=== PATIENT | male | born 1960 | race Caucasian/White ===

== ENCOUNTER 2024-08-13 21:53 | Inpatient (IN) | payer OTHER, SELFPAY ==
[2024-08-13] VITALS (33 sets, daily range): BP systolic 73–144; BP diastolic 51–121; BMI 25.1
[2024-08-13] MEDS: ZOFRAN 4 MG IV (19:21)
[2024-08-13] MEDS: SUBLIMAZE 100 MCG IV (19:21)
--- NOTE | 2024-08-13 19:26 | ED.GENMED ---
History of Present Illness
General
Chief Complaint: Chest Pain
Source: patient
Exam Limitations: none
Time Seen by Provider: 08/13/24 19:15
Nursing documentation reviewed up to this point in time: agreed with
History of Present Illness
History of Present Illness:
Patient's status post pacemaker placement in 2023 secondary to bradycardia associated with AV block, along with substance abuse, presents to ED from [facility] secondary to sudden onset of chest pain radiating to the back, an
approximately 2 hours prior to arrival. Denies nausea or vomiting. Chest pain described as sharp, with radiation to the back, without any alleviating or exacerbating factors. Denies previous history of similar symptoms. Denies shortness of
breath. Denies trauma. Denies recent illness. Denies recent change in medications or diet. Denies recent travel. Denies recent surgery. Denies leg pain or swelling.
Review of Systems
Review of Systems
Allergies reviewed?: Yes
All Other Systems: ROS reviewed and negative except as documented in HPI and ROS
Constitutional: Reports no symptoms; Denies fever
Respiratory: Reports no symptoms; Denies trouble breathing
Cardiac: Reports chest pain and diaphoresis; Denies palpitations
ABD/GI: Reports no symptoms; Denies nausea or vomiting
Musculoskeletal: Reports no symptoms; Denies neck pain or back pain
Skin: Reports no symptoms
Neurological: Reports no symptoms; Denies dizzy or headache
Phy Exam
Physical Exam
Physical Exam:
Physical Exam
General: moderate painful distress, not acutely ill. afebrile
Head: nc/at. eomi
Neck: supple. no meningeal signs. no jvd
Heart: s1/s2 regular rate and rhythm
Lungs: no acute respiratory distress. clear bilaterally. chest wall nontender to palpation
Abdomen: normal bowel sounds. not tender.
Neuro: alert and oriented x 3. no focal neurological deficits
Skin: no rash
Psychiatric: well kept. interactive and cooperative
Extremities: no edema. no calf tenderness.
Scores
Heart Score for Chest Pain Patients
STEMI patient?: Yes
Course
Orders/Labs/Results
Orders:
Orders
08/13/24 Breakfast
Cholesterol Lowering
At Your Request: Full Participation
Cholesterol Lowering: Sodium, 2 Gram
08/13/24 19:10
Electrocardiogram (*1) Urgent
Reason for Study: Chest Pain
Cardiac Monitoring- Treatment ONCE
EKG- Treatment ONCE
IV Insert/Care/Rem.- Treatment PRN
O2 Therapy [RESP] Urgent
Titrate/Wean O2 to maintain O2 sat greater than (%): 90
Special Instructions: Maintain sats >/=90%
Pulse Ox/spot Check [RESP] Urgent
Quantity: 1
Special Instructions: ON ROOM AIR
08/13/24 19:13
Ondansetron Injectable [Zofran] 4 mg .ROUTE .STK-MED ONE
08/13/24 19:14
Fentanyl Citrate/Pf [Sublimaze] 100 mcg .ROUTE .STK-MED ONE
08/13/24 19:15
CT Chest/abd/pel Wo Iv Cont Urgent
Reason For Exam: CP radiating to back
08/13/24 19:19
0.9% Sodium Chloride 500 ml [Nss] 500 ml IV BOLUS
Fentanyl Citrate/Pf [Sublimaze] 100 mcg IV NOW STA
Ondansetron Injectable [Zofran] 4 mg IV NOW STA
08/13/24 19:45
Amiodarone [Cordarone] 900 mg DEXTROSE 5% PVC-free BAG [D5W PVC-free BAG] 500 ml IV PER PROTOCOL
08/13/24 19:57
Ticagrelor [Brilinta] 90 mg .ROUTE .STK-MED ONE
08/13/24 20:13
Fentanyl Citrate/Pf [Sublimaze] 100 mcg .ROUTE .STK-MED ONE
Heparin 10,000 units .ROUTE .STK-MED ONE
Midazolam HCl [Versed] 2 mg .ROUTE .STK-MED ONE
Verapamil Injectable [Isoptin/Verapamil Injection] 5 mg .ROUTE .STK-MED ONE
08/13/24 20:14
Heparin 1000 Units/500 ml [Heparin] 1,000 units in 500 ml .ROUTE .STK-MED
Heparin Sodium,Porcine/Ns/Pf [Heparin 2000 Units/1000 ml] 2,000 unit in 1,000 ml .ROUTE .STK-MED
Lidocaine HCl/Pf [Xylocaine-Mpf 1% Vial] 100 mg .ROUTE .STK-MED ONE
Nitroglycerin [Tridil] 1,500 mcg .ROUTE .STK-MED ONE
08/13/24 20:15
DOPamine 400 MG/D5W 250 ML [DOPamine 400 MG] 400 mg in 250 ml IV PER PROTOCOL
Initial dose in mcg/kg/min, then titrate:: 10
Titrate to keep:: SBP > 90 mmHg
Titrate by mcg/kg/min:: 1-2 mcg/kg/min
Frequency of titrations (minutes):: 15
Maximum dose in ICU in mcg/kg/min:: 20
Maximum dose in IMU in mcg/kg/min:: 10
Begin to taper infusion when:: Remained at goal for 4hrs
Taper by mcg/kg/min:: 1-2 mcg/kg/min
Frequency of taper (minutes) if patient maintains goal:: 30
Taper to off?: Yes
If infusion off & no longer maintaining goal:: Contact Provider
08/13/24 20:23
Complete Blood Count/With Diff Urgent
Comprehensive Metabolic Panel Urgent
Lipase Urgent
Troponin I Urgent
08/13/24 20:26
PT/INR [Prothrombin Time] Urgent
08/13/24 20:46
NORepinephrine 4 MG/250 ML [Levophed] 4 mg in 250 ml .ROUTE .STK-MED
08/13/24 21:15
Arterial Blood Gas Stat
Lactic Acid Stat
08/13/24 21:18
Furosemide [Lasix] 20 mg .ROUTE .STK-MED ONE
08/13/24 21:42
Admit Patient As Directed
Co-Sign Provider:
Level of Care: Inpatient admission
Assign to:: CVICU
Physician / Group: CBC
Diagnosis: STEMI
Reason for Hospitalization: STEMI
Expected length of stay greater than two midnights?: Yes
ELOS- Estimated Length of Stay in days: 3
I certify the patient meets the requirements for IP care: Yes
Electrocardiogram (*1) Urgent
Reason for Study: Other
Other Reason for Exam: s/p intervention
Code Status As Directed
Resuscitation Status: Full Code
CARDIAC REHAB CONSULT Routine
Co-Sign Provider:
Cardiac Rehab & Exercise Evaluation Referral
Type of Cardiac Rehab Referral: Outpatient
Diagnosis: STEMI
Date of Diagnosis/Surgery: 08/13/2024
Referring Provider: Jarrett Fontanez
[facility] Intensive Cardiac Rehab Exercise Prescription
The above named person is capable of participating in an intensive cardiac rehab exercise therapy program
under the guidance of the [facility] cardiac rehab staff, outpatient registered dieticians and
supervision of a physician.
ICR Program Objectives:
Provide supervised exercise, cooking classes, nutritional counseling and healthy mind-set education to
improve the function/symptom free work capacity to an optimal level as well as control risk factors to
prevent the progression of heart disease. During the supervised exercise therapy session some or all of
the following may be included in the cardiac rehab session: ECG telemetry, BP, heart rate, rate of
perceived exertion, symptoms/tolerance, cholesterol testing and education. Exercise modalities may
include: treadmill, upright or recumbent bike, spin bike, rowing machine, elliptical, recumbent
elliptical, arm-bike machine, recumbent stepper and free weights.
Intensity:
All CR staff will use ACSM guidelines: Most patients will exercise in the following range: Heart Rate
Dante range of 40% to 80% & Oxygen Uptake reserve range 40-80% (VO2R). Peak heart rate and VO2 are
derived from the cardiac rehab submaximal graded exercise test at RPE of 13/14 out of 20. Initial
intensity range: RPE 11 to 14/20 and may expand to 11 to 16/20.
Duration & Frequency:
If appropriate the patient will be progressed up to 40 minutes of exercise therapy. Patients will be
instructed to come three times a week in cardiac rehab and at a home/other gym to achieve optimal
physical activity/exercies i.e. 4000-10,000 steps per day.
Education:
The patient will receive one-on-one education during their orientation, initial exercise evaluation, ITP
reassessments and discharge session. Each exercise session will also include an education class (30-40
minutes).
Acetaminophen [Tylenol] 650 mg PO Q4HPRN PRN
Activity As Directed
Activity Level: Out of Bed- Chair
Comment: bed/chair rest for 2 hours then out of bed ad sarahi
Claim Review Medical Director Procedure As Directed
Cardiac Cath Procedure: percutaneous coronary intervention
Intake/ Output As Directed
Frequency: Per unit guidelines
Notify MD As Directed
Notify physician if: immediately for chest pain or bleeding from access site(s)
Radial Artery Hemostasis Method As Directed
Instructions:: 3 mL out at 2 hour posts placement of band
3 mL out at 2 1/2 hours post placement of band
3 mL out at 3 hours post placement of band
Off at 3 1/2 hours post placement of band
If any oozing or hemotoma occurs:: re-inflate band and call provider
Site Checks As Directed
Check access site for bleeding/hematoma: Yes
Comment: on arrival, Q15min x4, Q30min x2, Q1 hr x2, Q2 hr x2, Q4 hr or per
protocol
Vascular Checks As Directed
Location: distal to access site - pulse check
Frequency: Other
Comment: on arrival, Q15min x4, Q30min x2, Q1 hr x2, Q2 hr x2, Q4 hr or per protocol
Vital Signs As Directed
Frequency: Other
Additional Instructions:: on arrival, Q15min x4, Q30min x2, Q1 hr x2, Q2 hr x2, then Q4 hr or per unit
protocol
08/13/24 21:43
PRN Pain Medication Management As Directed
May give lesser potent ordered pain med per pt: Yes
preference::
Protocol:: Medication orders for pain may be administered in a
manner that supports deferring to patient preference
when the pt is:
- Requesting an ordered lesser potent pain medication.
Least to most potent pain medications are defined
as: acetaminophen < NSAID < tramadol < opioids
(morphine, oxycodone, hydromorphone).
- Requesting a lesser dose of the same medication IF
ORDERED.
- Requesting a less intrusive route of administration
if both routes are prescribed by the provider (PO <
IV).
DX Deep Vein Thrombosis Video Routine
08/13/24 21:45
Atorvastatin [Lipitor] 80 mg PO QPM
08/13/24 22:30
Glycohemoglobin (HgbA1c) Routine
08/14/24 00:00
Heparin 5,000 units SC Q8
08/14/24 06:00
Echo 2D MMode Color/Doppler IN AM
Reason for Study: STEMI
Electrocardiogram (*1) IN AM
Reason for Study: Other
Other Reason for Exam: s/p intervention
Basic Metabolic Panel IN AM
Cardiovascular Evaluation IN AM
Complete Blood Count/With Diff IN AM
08/14/24 08:00
Aspirin Chewable [Low Strength Aspirin] 81 mg PO DAILY
Ticagrelor [Brilinta] 90 mg PO BID
Abnormal Lab Results
06/02/2508/13/24 08/13/24
20:23 20:32 20:54
WBC 13.6 H 10^3/uL
(4.8-10.8)
RBC 4.46 L 10^6/uL
(4.70-6.10)
MPV 10.8 H fL
(7.4-10.4)
Abs Immat Gran (auto) 0.1 H 10^3/uL
(0-0.05)
Absolute Neuts (auto) 8.5 H 10^3/uL
(1.4-6.5)
Absolute Lymphs (auto) 3.7 H 10^3/uL
(1.2-3.4)
Absolute Monos (auto) 1.1 H 10^3/uL
(0.1-0.6)
pH
HCO3
Glucose 112 H mg/dl
(70-99)
POC ACT Low Range 160 H Seconds 242 H Seconds
(116-155) (116-155)
08/13/24 08/13/24 08/13/24
21:12 21:15 21:25
WBC
RBC
MPV
Abs Immat Gran (auto)
Absolute Neuts (auto)
Absolute Lymphs (auto)
Absolute Monos (auto)
pH 7.32 L
(7.35-7.45)
HCO3 20.1 L mmol/L
(21-28)
Glucose
POC ACT Low Range 294 H Seconds 274 H Seconds
(116-155) (116-155)
08/13/24 20:23
08/13/24 20:23
Vital Signs
Initial and Last Documented VS:
Initial Vital Signs
Temp Pulse Resp Pulse Ox
98.6 F 77 22 100
08/13/24 19:11 08/13/24 19:11 08/13/24 19:11 08/13/24 19:11
Last Documented Vital Signs
Temp Pulse Resp BP Pulse Ox
98.5 F 50 14 97/69 99
08/13/24 23:47 08/14/24 01:05 08/14/24 01:05 08/14/24 01:01 08/14/24 01:05
MDM/Problems Addressed
MDM/Problems Addressed:
Patient evaluated immediately upon arrival secondary to ongoing chest pain with prehospital EKG concerning for potential ST elevation. EKG obtained upon arrival in ED reveals paced rhythm. However given patient's presentation, there is significant
clinical concern for potential aortic dissection. As such, stat CT angiogram of chest abdomen pelvis ordered, after providing patient with fentanyl along with Zofran. Blood pressure also checked in both arms, with slight differential noted on
systolic blood pressure.
After receiving initial CT chest without contrast, clinical laboratory aides teacher study, patient noted to become less responsive and noted to be in ventricular fibrillation rhythm on the monitor. Staff emergency activated while patient in CT. CPR started immediately by
staff at bedside. Patient brought back to ED bed with CPR in progress. Patient given epi injection along with continual CPR. Shortly afterwards, patient defibrillated via 200 J and CPR continued. After CPR for 2 minutes, rhythm check performed,
which revealed continual ventricular fibrillation rhythm. Patient given second defibrillation via 200 J. Immediately afterwards, patient woke up with ROSC. Subsequently, patient with monitor rhythm showing ST elevation, confirmed by EKG. Patient
also loaded with amiodarone 150 mg followed by infusion.
Patient started on dopamine infusion secondary to hypotension along with bradycardia along with IVF bolus, with improvement.
Discussed with Claim Review Medical Director attending, Dr. Nicholson. Decision made to activate STEMI alert. Patient given aspirin prehospital. As such, patient loaded with heparin bolus 4000 units, followed by Brilinta 180 mg.
Patient evaluated by Dr. Nicholson at bedside. Patient consented for cardiac catheterization.
Critical care statement: A total of 60 minutes of critical care time was provided for this patient. This includes management of unstable vital signs, evaluation of the patient at bedside, reviewing the patient's pertinent medical records, discussion
with consultants, review of old EKGs and review of pertinent medical records. This time with separate from time utilized to perform the aforementioned documented procedures
*Critical Care Note
Total Time (30-74mins, 75-104mins- exclusive of procedures): 60 min
ED Attending Note
-
Portions of this chart may have been created with voice recognition software.� Occasional wrong word or��sound alike� substitutions may have occurred due to the inherent limitations of voice recognition software.
Discharge Plan
Departure
Patient Disposition: [facility]
Date of Disposition: 08/13/24
Time of Disposition: 20:08
Admit to: microbiology lab technician
Presentation/result/management discussed w/ accepting MD/DO:
Discharge Problem:
ST elevation (STEMI) myocardial infarction, Cardiac arrest with ventricular fibrillation
Interventions
Interventions:
*Risk Screen - Suicide Last Done: 08/13/24 19:11
*General Assessment Last Done: 08/13/24 19:11
*Neglect/Abuse Screening Last Done: 08/13/24 19:11
*ED- Fall Risk Assessment Last Done: 08/13/24 19:11
*ED COVID-19 Vaccine History Last Done: 08/13/24 19:11
*Nursing Disposition Last Done: 08/13/24 20:15
ED- Cardiac Assessment Last Done: 08/13/24 19:23
Discharge Date and Time
Discharge Date/Time: 08/13/24 20:15
[2024-08-13 20:35] LABS: % Eosinophils 0.8 % (0-6); % Immature Granulocytes 0.4 % (0-0.5); % Monocytes 7.7 % (1.7-9.3); % Neutrophils 63.1 % (42.2-75.2); Absolute Basophils 0.1 10^3/uL (0-0.2); Absolute Eosinophils 0.1 10^3/uL (0-0.7); Absolute Immature Granulocytes 0.1 10^3/uL (0-0.05); Absolute Lymphocytes 3.7 10^3/uL (1.2-3.4); Absolute Monocytes 1.1 10^3/uL (0.1-0.6); Absolute Neutrophils 8.5 10^3/uL (1.4-6.5); Hematocrit 39.8 % (39.0-52.0); Hemoglobin 13.6 g/dL (13.0-18.0); Mean Corp Hgb Conc. 34.2 g/dL (33.0-37.0); Mean Corpuscular Hgb 30.5 pg (27.0-31.0); Mean Corpuscular Volume 89.2 fL (80.0-94.0); Mean Platelet Volume 10.8 fL (7.4-10.4); Nucleated Red Blood Cells % 0 % (-); Platelet Count 252 10^3/uL (130-400); Red Blood Cell Count 4.46 10^6/uL (4.70-6.10); Red Cell Dist. Width 12.5 % (11.5-14.5); White Blood Cell Count 13.6 10^3/uL (4.8-10.8)
[2024-08-13 20:36] LABS: ACT-LR - POC 160 Seconds (116-155)
[2024-08-13 20:45] LABS: INR 0.99; PT 13.6 Sec (11.4-14.6)
[2024-08-13 20:57] LABS: ALT (SGPT) 19 U/L (0-50); AST (SGOT) 19 U/L (17-59); Albumin 3.8 g/dl (3.5-5.0); Alkaline Phosphatase 58 U/L (38-126); Blood Urea Nitrogen 12 mg/dl (9-20); Calcium 8.7 mg/dl (8.4-10.2); Carbon Dioxide 26 mmol/L (22-30); Chloride 107 mmol/L (98-107); Glucose 112 mg/dl (70-99); Lipase 141 U/L (23-300); Sodium 141 mmol/L (135-145); Total Bilirubin 0.3 mg/dl (0.2-1.3); Total Protein 6.6 g/dl (6.3-8.2); eGFR > 60.00
[2024-08-13 20:59] LABS: ACT-LR - POC 242 Seconds (116-155)
[2024-08-13 21:08] LABS: Troponin I 0.014 ng/ml
[2024-08-13 21:18] LABS: ACT-LR - POC 294 Seconds (116-155)
[2024-08-13 21:28] LABS: B.E. -5.6 mmol/L; HCO3 20.1 mmol/L (21-28); O2 Saturation % 97.6 % (94-98); PCO2 39 mmHg (35-48); PO2 84 mmHg (83-108); pH 7.32 (7.35-7.45)
[2024-08-13 21:30] LABS: ACT-LR - POC 274 Seconds (116-155)
[2024-08-13 21:39] LABS: Lactic Acid 1.5 mmol/L (0.7-2.0)
--- NOTE | 2024-08-13 21:49 | ITS.CL.CATH ---
Addendum entered and electronically signed by Marii Nicholson MD 08/14/24 08:34:
Of note, after postdilatation of the stent in the mid LAD with NC balloon, there appeared to be some plaque shift into the ostial D2 which is a small to medium caliber vessel which maintain ISABELA-3 flow and therefore decision was made to medically
manage this. Jailed ostial D2 has 70% stenosis.
Marii Nicholson MD, [facility], [facility]
Original Note:
Wire Bound Box Machine Operator - Catheterization
Cardiac Catheterization
Procedure Report:
LEFT HEART CATHETERIZATION
Date of Procedure: August 13, 2024
Referring: [facility]
PROCEDURES:
1. Left heart catheterization, coronary angiogram.
2. Moderate sedation.
3. Right heart catheterization.
4. Successful percutaneous coronary artery intervention of 100% mid LAD occlusion just distal to to the takeoff of a small to medium caliber D2 with (ISABEAL 0 flow, Type C) with one 2.5 x 22 mm Medtronic Steve drug-eluting stent, postdilated using
IVUS guidance with a 2.5 x 15 mm NC balloon at 18 rebecca distally and 20 rebecca proximally with an excellent angiographic and IVUS based result.
5. Intravascular ultrasound (IVUS)
INDICATION: Gennaro is a 63-year-old gentleman presenting from [facility] with past medical history of hypertension, hyperlipidemia, chronic left bundle branch block, dilated aortic root, last measured at 4.3 cm, previous methamphetamine use stopped 3
to 4 weeks ago when he went to [facility], prior alcohol abuse quit about 11 to 12 years ago, tobacco abuse, quit 3 to 4 weeks ago when he went to [facility], fairly recent hospital admission for complete heart block status post Medtronic pacemaker in
March 2024, preserved LV systolic function who presents with acute onset substernal chest discomfort starting around 4:30 PM initially presenting with an EKG showing paced ventricular rhythm. Given patient described chest pain radiating to the
back he was sent for a aortic protocol CTA. Just after noncontrast images before he could even get IV contrast he lost consciousness and was found to be in ventricular fibrillation. ACLS was performed and ROSC was obtained with post ROSC EKG
showing ST elevations anteriorly for which heart catheterization team was emergently activated and after detailed informed consent patient was brought into the heart catheterization lab for an emergent heart catheterization.
ACCESS: 1. Right radial artery, 6Fr. sheath, under US guidance.
2. Right common femoral artery, 6Fr sheath, under US guidance with micropuncture.
HEMODYNAMICS : (mmHg)
RA (m) : 21
RV (s/d,m) : 52/12, 21
PA (s/d, m) : 52/25, 32
PCWP (m) : 26
PA saturation: 67.8% on room air
AO saturation: 94.8% on room air
Cardiac Output : 4.90 L/min
Cardiac Index : 2.36 L/min/m-2
Systemic vascular resistance: 816 dsc^(-5)
Pulmonary vascular resistance: 1.22 russell unit
AO (s/d) : 94/63
LVEDP : 25
No significant gradient across the aortic valve to suggest aortic stenosis.
CORONARY FINDINGS
Dominance: Right
Left Main Trunk (LMT): Large caliber vessel that gives rise to the LAD and LCx branches and is free of angiographic disease.
Left Anterior Descending Artery (LAD): Large caliber vessel that gives off 2 major diagonal branches as it courses along the anterior inter-ventricular groove before wrapping around the cardiac apex. Mid LAD has 100% occlusion just distal to the
takeoff of a small to medium caliber D2 with ISABELA 0 flow.
Left Circumflex Artery (LCx): Large caliber vessel that gives off 2 major obtuse marginal (OM) branches as it courses along the atrio-ventricular (AV) groove. There is mild diffuse atherosclerotic plaque
Right Coronary Artery (RCA): Large caliber dominant vessel that gives rise to the posterior descending artery (RPDA) and postero-lateral ventricular (RPLV) branches distally. There is mild diffuse atherosclerotic plaque
CORONARY INTERVENTION: The left coronary artery was engaged selectively using a 6 [place] EBU 3.5 guide catheter. Additional heparin was given to maintain a therapeutic ACT throughout the case. A 190 cm 0.014 run-through wire was carefully advanced
across the 100% mid LAD occlusion into the distal vessel. The lesion was predilated using a 2.5 x 12 mm semicompliant balloon with full expansion. Subsequently the lesion was stented using a 2.5 x 22 mm Medtronic Steve drug-eluting stent. We
postdilated the stent using a 2.5 x 15 mm NC balloon at 18 rebecca distally and 20 rebecca proximally. Post PCI IVUS showed a well-expanded and well apposed stent without evidence of distal or proximal stent edge dissections. The patient tolerated the
procedure well. No acute complications.
SEDATION: 67 minutes of procedural sedation was utilized. IV Midazolam and IV Fentanyl were administered. An independent medical transcription supervisor was present to assist with and help manage the patient's level of consciousness and physiologic status.
RADIATION SUMMARY: Fluoro Time (min): 10.7, Dose (mGy): 854.37, DAP (Gy.cm2) : 63.5
Closure Device: There were no immediate intra-procedural complications. The sheath was pulled in the cardiac cath rn and a vascular-band applied to the right wrist for radial artery hemostasis using the patent hemostasis technique. Manual pressure was
held over the right common femoral vein with successful hemostasis.
CONCLUSIONS
1. Successful percutaneous coronary artery intervention of 100% mid LAD occlusion just distal to to the takeoff of a small to medium caliber D2 with (ISABELA 0 flow, Type C) with one 2.5 x 22 mm Medtronic [place] drug-eluting stent, postdilated using IVUS
guidance with a 2.5 x 15 mm NC balloon at 18 rebecca distally and 20 rebecca proximally with an excellent angiographic and IVUS based result.
2. Elevated LVEDP 25mmHG
RECOMMENDATIONS
1. Wean radial band per protocol. Monitor right hand perfusion and for bleeding from the radial site following removal of the vascular-band following trans-radial access.
2. Continue aggressive medical therapy and risk factor modification for secondary CAD prevention.
3. Continue ASA 81 mg daily for life.
4. Continue Brilinta for at least 12 months of uninterrupted dual anti-platelet therapy given drug-eluting stent (ALIZE) implantation to mitigate the risk of stent thrombosis. This is not to be stopped for any reason without the guidance of a
computer aided design operator.
5. Referral for outpatient cardiac rehab.
6. Full echocardiogram to assess biventricular function.
Marii Nicholson MD, FACC, [facility]
--- NOTE | 2024-08-13 22:13 | HPS.HSE ---
Family Physician
-
Family Physician: Facility [facility] [place]
Chief Complaint
-
Chest Pain
History of Present Illness
Gennaro is a 63-year-old gentleman presenting from shelter with past medical history of hypertension, hyperlipidemia, chronic left bundle branch block, dilated aortic root, last measured at 4.3 cm, previous methamphetamine use stopped 3 to 4 weeks
ago when he went to shelter, prior alcohol abuse quit about 11 to 12 years ago, tobacco abuse, quit 3 to 4 weeks ago when he went to shelter, fairly recent hospital admission for complete heart block status post Medtronic pacemaker in March 2024,
preserved LV systolic function who presents with acute onset substernal chest discomfort starting around 4:30 PM initially presenting with an EKG showing paced ventricular rhythm. Given patient described chest pain radiating to the back he was sent
for a aortic protocol CTA. Just after noncontrast images before he could even get IV contrast he lost consciousness and was found to be in ventricular fibrillation. ACLS was performed and ROSC was obtained with post ROSC EKG showing ST elevations
anteriorly for which heart catheterization team was emergently activated. Patient received 325 mg of aspirin along with 5000 units of unfractionated IV heparin and 180 mg of Brilinta in the emergency room
Medical History
Past Medical History
Past Medical History: Reports Arrhythmia, HTN and Hypercholesterolemia
Additional Past Medical History:
CHB s/p PPM
Past Surgical History: Reports Other
Additional Past Surgical History:
PPM
Social History
Tobacco: Former Smoker
Alcohol: Former
Drug: Former User
Living: Nursing Home
Employment: Not Employed
Family History
Family History: Not pertinent
Allergies / Home Medications
Allergies reflects when Allergies were last updated in [facility]
Home Medications with original date entered in [facility]
Allergy/Medication List:
NKDA
Patient cannot confirm if he takes these medications however by report he is on lisinopril 10 mg and Toprol-XL 25 mg
If medication reconciliation has not been performed, why?: Other
If Other, explain: Patient could not confirm if he takes his medications however by report he
Review of Systems
-
A 12 point ROS was completed and negative except as noted: Yes
Physical Exam
Vital Signs
Vital Signs
Temp Pulse Resp BP Pulse Ox
98.6 F 53 20 96/59 98
08/13/24 19:11 08/13/24 20:20 08/13/24 20:20 08/13/24 20:20 08/13/24 19:16
Physical Exam
General: Well Developed, Well Nourished, Appears in Distress and Pain
HEENT: Moist mucous membranes
Respiratory: Rales, Non Labored Respirations and Decreased Breath Sounds
Cardiac: S1/S2, Regular Rhythm, JVD and Carotid Pulses; No Peripheral Edema, Carotid Bruits or HJR
GI: Soft, Non Tender, Non Distended and Normal Bowel Sounds
Musculoskeletal: No Clubbing, No Cyanosis and No Edema
Skin: Warm and Dry
Neuro: AO x 3
Psych: Anxious
Laboratory Results
-
08/13/24 20:23
08/13/24 20:23
Laboratory Results
PT 13.6 Sec (11.4-14.6) 08/13/24 20:26
INR 0.99 08/13/24 20:26
pH 7.32 (7.35-7.45) L 08/13/24 21:15
pCO2 39 mmHg (35-48) 08/13/24 21:15
pO2 84 mmHg (83-108) 08/13/24 21:15
HCO3 20.1 mmol/L (21-28) L 08/13/24 21:15
Lactic Acid 1.5 mmol/L (0.7-2.0) 08/13/24 21:15
Total Bilirubin 0.3 mg/dl (0.2-1.3) 08/13/24 20:23
AST 19 U/L (17-59) 08/13/24 20:23
ALT 19 U/L (0-50) 08/13/24 20:23
Alkaline Phosphatase 58 U/L (38-126) 08/13/24 20:23
Troponin I 0.014 ng/ml 08/13/24 20:23
Lipase 141 U/L (23-300) 08/13/24 20:23
Data Reviewed
-
Diagnostic Radiology: Image Personally Visualized and interpreted
CT Scan: Report Reviewed by me
Medical Tests (Nuc Med, Echo, EKG etc): Image Personally Visualized and interpreted
Lab Data: Labs Reviewed by me
Old Records: Reviewed
Impression/Plan
-
IMPRESSION: Gennaro is a 63-year-old gentleman with past medical history of hypertension, hyperlipidemia, former tobacco abuse, quit about 4 weeks ago, former methamphetamine use, quit 4 weeks ago when he went to shelter, alcohol abuse, quit 12 years
ago, complete heart block status post Medtronic pacemaker in March 2024 who presents with acute onset substernal chest discomfort complicated by VF arrest status post ACLS with ROSC found to have a anterior ST elevation [place]
PLAN:
1. Successful percutaneous coronary artery intervention of 100% mid LAD occlusion just distal to to the takeoff of a small to medium caliber D2 with (ISABELA 0 flow, Type C) with one 2.5 x 22 mm Medtronic Tseve drug-eluting stent, postdilated using IVUS
guidance with a 2.5 x 15 mm NC balloon at 18 rebecca distally and 20 rebecca proximally with an excellent angiographic and IVUS based result.
2. Uninterrupted dual antiplatelet therapy with daily baby aspirin and Brilinta 90 mg twice daily, high intensity statin. Hold home Toprol-XL and lisinopril while he is on Levophed.
3. Wean pressors as tolerated.
Aim for MAP over 65.
4. Full echocardiogram to assess biventricular function and rule out any significant valvular disease.
5. Close monitoring on telemetry, trend troponins and EKGs.
6. Eventual referral for outpatient cardiac rehab
7. Urine drug screen
Marii Nicholson MD, FACC, [facility]
[2024-08-13] MEDS: LIPITOR 80 MG PO (23:08)
[2024-08-13] MEDS: TYLENOL 1000 MG PO (23:08)
--- NOTE | 2024-08-13 23:53 | PTCARENOTE ---
Patient arrived at approx 2205. Patient is confidential forensic accompanied by two guards. Patient admitted, oriented to room, and informed of plan of care. Initial labs and EKG performed. Admission questions asked. Urine drug analysis obtained.
MRSA screening. Provider informed of patient's prior meth use. Sites are intact pulses palpable distal to sites. Tylenol and Lipitor administered. Full assessment to follow.
[2024-08-14] VITALS (33 sets, daily range): BP systolic 73–149; BP diastolic 44–97; BMI 25.1
--- NOTE | 2024-08-14 | PTCARENOTE ---
Patient found to be alert orientedx4. Patient reports being [place] in R ear. Lung sounds are diminished in the bases, saO2 98% on 2L. Patient has distant heart sounds, on the monitor patient is primarily vpaced with frequent PVCs as well as underlying
atrial fibrillation. There is a L PPM. Patient has hypoactive BS in all four quadrants and is voiding in urinal clear yellow. Patient has R AC PIV, R FA PIV and L AC PIV. Patient has a R wrist puncture with TR band and R groin puncture with 4x4
gauze dressing CDI. Patient is on amio gtt@1, Levo originally @6 tapered to off. Patient reports history of drug abuse (meth) denies opioid use.
[2024-08-14 00:04] LABS: Amphetamines Negative (Negative); Barbiturates Negative (Negative); Benzodiazepines Negative (Negative); Buprenorphine Negative (Negative); Cocaine Negative (Negative); Marijuana Negative (Negative); Methadone Negative (Negative); Methamphetamines Negative (Negative); Opiates Negative (Negative); Phencyclidine Negative (Negative); Tricyclic Antidepressants Negative (Negative)
[2024-08-14] MEDS: HEPARIN 5000 UNITS SC ×2 (00:06→07:18)
--- NOTE | 2024-08-14 01:00 | PTCARENOTE ---
TR band off. Site CDI no oozing, tenderness, bruising.
[2024-08-14] MEDS: CORDARONE 103 MG IV (01:30)
--- NOTE | 2024-08-14 01:39 | PTCARENOTE ---
Patient with 10 beat run of vtach at 0113. Patient asymptomatic. CT PA notified. Orders received for amio bolus. Magnesium added to AM labs
[2024-08-14] MEDS: TYLENOL 650 MG PO ×5 (03:04→22:40)
[2024-08-14 03:33] LABS: % Basophils 0.3 % (0-2); % Eosinophils 0.1 % (0-6); % Immature Granulocytes 0.5 % (0-0.5); % Lymphocytes 8.3 % (20.5-51.1); % Neutrophils 82.8 % (42.2-75.2); Absolute Basophils 0.1 10^3/uL (0-0.2); Absolute Immature Granulocytes 0.1 10^3/uL (0-0.05); Absolute Lymphocytes 1.6 10^3/uL (1.2-3.4); Absolute Monocytes 1.5 10^3/uL (0.1-0.6); Absolute Neutrophils 15.6 10^3/uL (1.4-6.5); Hematocrit 39.2 % (39.0-52.0); Hemoglobin 13.6 g/dL (13.0-18.0); Mean Corp Hgb Conc. 34.7 g/dL (33.0-37.0); Mean Corpuscular Hgb 30.6 pg (27.0-31.0); Mean Corpuscular Volume 88.1 fL (80.0-94.0); Mean Platelet Volume 10.5 fL (7.4-10.4); Nucleated Red Blood Cells % 0 % (-); Platelet Count 240 10^3/uL (130-400); Red Blood Cell Count 4.45 10^6/uL (4.70-6.10); Red Cell Dist. Width 12.7 % (11.5-14.5); White Blood Cell Count 18.8 10^3/uL (4.8-10.8)
[2024-08-14 03:44] LABS: Blood Urea Nitrogen 15 mg/dl (9-20); Calcium 8.8 mg/dl (8.4-10.2); Carbon Dioxide 25 mmol/L (22-30); Chloride 107 mmol/L (98-107); Estimated Creatinine Clearance 106 ml/min; Glucose 112 mg/dl (70-99); HDL Cholesterol 40 mg/dl; LDL Cholesterol, Calculated 104 mg/dl; Magnesium 2.2 mg/dl (1.6-2.3); Potassium 4.2 mmol/L (3.5-5.1); Sodium 139 mmol/L (135-145); Total Cholesterol 162 mg/dl (50-199); Triglyceride 94 mg/dl (10-149); Very Low Density Lipoprotein 18 mg/dl (0-30); eGFR > 60.00
[2024-08-14] MEDS: BRILINTA 90 MG PO (07:17)
[2024-08-14] MEDS: LOW STRENGTH ASPIRIN 81 MG PO (07:18)
--- NOTE | 2024-08-14 08:45 | PTCARENOTE ---
Pt received in bed @ 0700. Drowsy. Oriented. Pt reports hard of hearing in right ear. 3/10 sternal pain; PRN Tylenol provided. SaO2 99% on room air. Lungs diminished at bases. V Paced on clinical research monitor with PVC's. Telemetry appears in atrial
fibrillation at times with ventricular pacing. Amiodarone gtt infusing at maintenance dose. Levophed weaned off last night at approximately 23:30. MAP remains > 65 without pressors. Dobutamine gtt never initiated. (R) radial and (R) groin site as
documented. Scheduled Aspirin and Brilinta administered. Abdomen round with hypoactive bowel sounds. Ate breakfast without difficulty. Report of clear yellow urine into urinal last night; no void observed yet. IV sites as documented.
[2024-08-14 09:22] LABS: Glycohemoglobin (HgbA1c) 5.8 % (4.0-5.6)
--- NOTE | 2024-08-14 10:01 | W.PN.CARDCBS ---
Addendum entered and electronically signed by Pk Virgen MD 08/14/24 12:38:
I saw and examined the patient.
The TRANSFER SPECIALIST's note was reviewed and I agree with the note.
Comment:
63-year-old man with hypertension, hyperlipidemia, chronic LBBB, CHB s/p PPM (03/2023), smoking who presents with substernal chest discomfort radiating to his back. Was ordered for CTA in the ER to rule out aortic dissection. After he had
noncontrast CT images done, he lost consciousness and was found to be in ventricular fibrillation. ACLS was performed and ROSC was obtained. ECG revealed anterior STEMI. He was taken to the [facility] where he was found to have 100% mid LAD
occlusion, status post PCI. Today he has some residual reproducible chest discomfort.
Physical exam notable for right radial and right groin cath sites without erythema, purulence, or fullness. Heart is regular rate and rhythm with no murmurs, lungs are clear, and he has no lower extremity edema.
Device interrogation reveals paroxysmal atrial fibrillation and VF arrest yesterday
Anterior STEMI. s/p PCI to LAD. Continue to monitor on telemetry until tomorrow. Continue aspirin. Switch Brilinta to Plavix given need for oral anticoagulation for paroxysmal A-fib. Continue atorvastatin 80 mg daily and metoprolol. Follow-up
today's echocardiogram.
Paroxysmal atrial fibrillation. New this admission, seen on device interrogation. Episodes have been as long as 13 hours. Asymptomatic. [id number] 2 (vascular disease, hypertension). Asked case management to lawanda Elkins. Triple
therapy for 1 week then stop aspirin.
Ventricular fibrillation. Occurred in the setting of occluded LAD. Overnight telemetry revealed AIVR and NSVT (max 10 beats). Stop amiodarone. Resume beta-edwin. Continue to monitor on telemetry.
Original Note:
Today's Communication / Plan
-
Trend troponin to peak
echo today
cardiac rehab consult
monitor tele another 24-48h
Impression / Plan
-
PCP: [facility]
CDY: Sajan Anderson MD
63 y/o, PMH HTN, HLD, chronic LBBB, dilated Ao Root (4.3cm, 03/2023), CHB w/DC PPM implant (03/22/2023), prior ETOH abuse (40 yr history, quit 11 yrs ago), tobacco abuse, methamphetamine abuse (stopped tobacco/drugs 4 weeks ago when he [facility]).
Acute onset SSCP radiating to back, brought to ER. EKG with vpaced rhythm and was sent for aortic protocol CTA. Prior to contrast imaging, he went into VFib with LOC requiring CPR. ROSC obtained with post EKG now showing anterior ST elevations
and STEMI alert activated.
Emergently brought to botany laboratory assistant.
LHC- 100% mid LAD occlusion- s/p angioplasty/DESx1
plaque shift into ostial D1 during stent post dilation- ISABELA-3 flow maintained, decision to medically manage.
70% stenosis to jailed D2
IMPRESSION:
Acute Anterior STEMI
VFib arrest with CPR/ROSC
s/p LAD PCI, 08/13/24
Jailed D1, medically manage
New onset AFib
Dilated Ao Root, 4.3cm (03/2023)
CHB w/PPM implant (03/22/23)
HTN
HLD
Chronic LBBB
Substance abuse history
Former ETOH (quit 11 yrs ago)
current tobacco abuse
methamphetamine abuse (recent, stopped 3-4 weeks ago)
PLAN:
Acute anterior STEMI w/VFib arrest
LAD PCI w/jailed D1
started on amiodarone gtt with VF last evening around 8pm- gtt will run until 2pm
10bt NSVT last night with additional 150mg bolus around 0115 this morning
Arrhythmia in setting of STEMI and will hold off on oral amio for now- restart metoprolol today
Tele- VPaced with SB alternating with intermittent Afib, frequent PVCs, 3-10bts NSVT
Troponin 152 and rising- trend to peak
musculoskeletal chest pain likely from CPR, modest relief from acetaminophen
echo today
DAPT w/asa, ticagrelor- CM to check cost- likely will need to change to clopidogrel
hypotensive/soft BPs- holding lisinopril for now
cardiac rehab
followup at [facility] at d/c
New onset AFib- intermittent
[id number]=3
consider triple therapy for 1 week then stop aspirin
will get device interrogated while here
Dilated Ao Root- noted at 4.3cm on echo 03/15/23
echo pending today
consider repeat CTA chest- imaging not completed d/t cardiac arrest
HTN- soft overnight- improved now but will hold off lisinopril and restart in AM
HLD- lipid profile noted
new start high intensity statin therapy w/atorvastatin 80/d
Substance abuse history
denies that he is having any symptoms
tox screen negative for methamphetamines/amphetamines
monitor for withdrawal, MSAS protocol
Progress Note - Parts Consultant
Subjective
Date of Service: August 14, 2024
Denies cp/palps/dyspnea
complained of chest pain with movement and palpitation unlike presenting symptoms- likely from CPR
radial and femoral cath sites without pain
Objective
Labs:
08/14/24 03:14
08/14/24 03:14
Labs
Hgb 13.6 g/dL (13.0-18.0) 08/14/24 03:14
Hct 39.2 % (39.0-52.0) 08/14/24 03:14
Plt Count 240 10^3/uL (130-400) 08/14/24 03:14
PT 13.6 Sec (11.4-14.6) 08/13/24 20:26
INR 0.99 08/13/24 20:26
Sodium 139 mmol/L (135-145) 08/14/24 03:14
Potassium 4.2 mmol/L (3.5-5.1) 08/14/24 03:14
BUN 15 mg/dl (9-20) 08/14/24 03:14
Creatinine 0.8 mg/dL (0.7-1.3) 08/14/24 03:14
Glucose 112 mg/dl (70-99) H 08/14/24 03:14
Troponins
08/13/24 08/13/24 08/13/24
20:23 21:45 22:30
Troponin I 0.014 Cancelled 64.300 H* D
08/14/24
06:21
Troponin I 152.000 H* D
Vital Signs and I&O:
Vital Signs
Temp Pulse Resp BP Pulse Ox
98.0 F 57 17 106/79 99
08/14/24 08:00 08/14/24 07:40 08/14/24 07:40 08/14/24 07:00 08/14/24 07:45
Vital Signs
Temp Pulse Resp BP Pulse Ox
98.0 F 57 17 106/79 99
08/14/24 08:00 08/14/24 07:40 08/14/24 07:40 08/14/24 07:00 08/14/24 07:45
Intake & Output
08/12/24 08/13/24 08/14/24 08/15/24
06:59 06:59 06:59 06:59
Intake Total 100 / 100 340 / 340
Output Total 325 / 325
Balance -225 / -225 340 / 340
Physical Exam
Physical Exam
AAOx3, MAEE 5/5
RRR S1 S2 no murmurs
CTA bilat, non labored
soft abd, + bs
right radial cath site without ht/bleeding, non tender
right femoral cath site w/dressing CDI, no ht/bleeding, non tender
--- NOTE | 2024-08-14 11:06 | PTCARENOTE ---
received pt from cvicu, pt oriented to room. pt is paced on the monitor, hr in the 60s, vss. pt offers no complaints at this time. call king within reach. guards at bedside.
--- NOTE | 2024-08-14 11:37 | CM ---
Addendum entered by Marcy Urbina RN 08/14/24 13:19:
Discharge Instructions will need to be faxed to [phone]
Original Note:
Patient [facility] at [facility]. Clinical report proved to Maren at the [facility]. Patient with guards at bedside. Nursing to provide updated clinical report to the [facility] at [phone]. Guards will transport patient back.
CM to follow
[2024-08-14] MEDS: TOPROL XL 25 MG PO ×2 (12:52→19:57)
[2024-08-14] MEDS: ZESTRIL 10 MG PO (18:24)
[2024-08-14] MEDS: LIPITOR 80 MG PO (18:24)
--- NOTE | 2024-08-14 18:40 | PTCARENOTE ---
pt continues to be paced on the monitor, hr in the 60s, vss. pt offers no complaints at this time. amio gtt completed. iv removed. pt c/o e/10 sternal pain, Tylenol given as needed, see MAR. Pt resting in bed comfortably. pt educated on plan of care
and pt verbalized understanding. call king within reach.
[2024-08-14] MEDS: ELIQUIS 5 MG PO (19:57)
[2024-08-14 21:10] LABS: Hepatitis C Antibody Negative (Negative)
--- NOTE | 2024-08-14 23:23 | PTCARENOTE ---
Rec'd pt at change of shift. PT AAO*3, VSS, and Vpaced on TELE monitor. Pt musculoskeletal pain at center chest, residual from CPR on 08/13. Pt reports relief with positional changes and Tylenol administration. R femoral site with dressing CDI.
R radial open to air and site intact. Pt updated on plan of care and resting with call king in reach. See MAR and flowchart for full pt care and assessment.
[2024-08-15 05:10] VITALS: BP 128/88
[2024-08-15 05:11] VITALS: BP 128/88
[2024-08-15] MEDS: TYLENOL 650 MG PO (05:29)
[2024-08-15 05:49] LABS: Hematocrit 44.7 % (39.0-52.0); Hemoglobin 15.2 g/dL (13.0-18.0); Mean Corpuscular Hgb 30.5 pg (27.0-31.0); Mean Corpuscular Volume 89.6 fL (80.0-94.0); Mean Platelet Volume 10.5 fL (7.4-10.4); Platelet Count 196 10^3/uL (130-400); Red Blood Cell Count 4.99 10^6/uL (4.70-6.10); Red Cell Dist. Width 12.8 % (11.5-14.5); White Blood Cell Count 14.2 10^3/uL (4.8-10.8)
[2024-08-15 06:16] LABS: Blood Urea Nitrogen 11 mg/dl (9-20); Carbon Dioxide 28 mmol/L (22-30); Chloride 104 mmol/L (98-107); Estimated Creatinine Clearance 122 ml/min; Glucose 109 mg/dl (70-99); Potassium 4.4 mmol/L (3.5-5.1); Sodium 138 mmol/L (135-145); eGFR > 60.00
[2024-08-15 07:46] VITALS: BP 110/76
[2024-08-15] MEDS: TOPROL XL 25 MG PO (09:59)
[2024-08-15] MEDS: PLAVIX 600 MG PO (09:59)
[2024-08-15] MEDS: LOW STRENGTH ASPIRIN 81 MG PO (09:59)
[2024-08-15] MEDS: ELIQUIS 5 MG PO (10:00)
[2024-08-15 11:34] VITALS: BP 108/78
--- NOTE | 2024-08-15 12:17 | W.PN.CD ---
Addendum entered and electronically signed by Pk Virgen MD 08/15/24 13:44:
I saw and examined the patient.
The SOLAR SALES's note was reviewed and I agree with the note.
Comment:
63-year-old man with hypertension, hyperlipidemia, chronic LBBB, CHB s/p PPM (03/2023), smoking who presented with substernal chest discomfort, subsequently VF arrest due to anterior STEMI, status post PCI to LAD. Now with ischemic cardiomyopathy
and newly diagnosed paroxysmal atrial fibrillation.
Physical exam notable for right radial and right groin cath sites without erythema, purulence, or fullness. Heart is irregular rate and rhythm with no murmurs, lungs are clear, and he has no lower extremity edema.
Anterior STEMI. s/p PCI to LAD. Continue DAPT for 1 week then switch to Plavix alone given need for systemic anticoagulation. Continue atorvastatin 80 mg daily and metoprolol 25 mg twice daily. LDL goal <55.
Ischemic cardiomyopathy. LVEF 35-40% with LAD wall motion abnormalities. Discharged with metoprolol and lisinopril. Consideration of MRA and SGLT2 inhibitor as outpatient.
Paroxysmal atrial fibrillation. New this admission, seen on device interrogation. Asymptomatic. [id number] 2 (vascular disease, hypertension). Continue Eliquis 5 mg twice daily.
Ventricular fibrillation. Occurred in the setting of occluded LAD. Subsequent telemetry with minimal NSVT. Continue metoprolol.
Original Note:
Today's Communication / Plan
-
Plan d/c
OP follow up as planned
Impression / Plan
-
PCP: [facility]
CDY: Sajan Anderson MD
63 y/o, PMH HTN, HLD, chronic LBBB, dilated Ao Root (4.3cm, 03/2023), CHB w/DC PPM implant (03/22/2023), prior ETOH abuse (40 yr history, quit 11 yrs ago), tobacco abuse, methamphetamine abuse (stopped tobacco/drugs 4 weeks ago when he went to penitentiary).
Acute onset SSCP radiating to back, brought to ER. EKG with vpaced rhythm and was sent for aortic protocol CTA. Prior to contrast imaging, he went into VFib with LOC requiring CPR. ROSC obtained with post EKG now showing anterior ST elevations
and STEMI alert activated.
Emergently brought to dental laboratory manager.
LHC- 100% mid LAD occlusion- s/p angioplasty/DESx1 08/13/24
plaque shift into ostial D1 during stent post dilation- ISABELA-3 flow maintained, decision to medically manage.
70% stenosis to jailed D2
IMPRESSION:
Acute Anterior STEMI
VFib arrest with CPR/ROSC
s/p LAD PCI, 08/13/24
Jailed D1, medically manage
New onset AFib
Dilated Ao Root, 4.3cm (03/2023)
CHB w/PPM implant (03/22/23)
HTN
HLD
Chronic LBBB
Substance abuse history
Former ETOH (quit 11 yrs ago)
current tobacco abuse
methamphetamine abuse (recent, stopped 3-4 weeks ago)
PLAN:
CAD/Acute anterior STEMI w/VFib arrest
LAD PCI w/jailed D1
peak troponin 152
echo 08/14/24 EF 35-40, WMA LAD territory. ectatic aortic root. 4cm
tele PVC's 4 bt
Medical therapy
cardiac rehab as OP
ICM
[id number], GDMT initiated. Will need further titration as OP
Reviewed need for compliance with medications.
New onset AFib- intermittent
[id number]=0- eliquis started
Triple therapy x 1 week then d/c asa.
CHB:
PPM in place
Dilated Ao Root- noted at 4.3cm on echo 03/15/23
No thoracic aortic aneurysm noted on CT
HTN- Monitor
HLD- statin, LDL this admit 104
Substance abuse history
Physical Exam
Vital Signs/Labs
Vital Signs
Temp Pulse Resp BP Pulse Ox
98.7 F 71 20 110/76 99
08/15/24 11:35 08/15/24 09:00 08/15/24 11:35 08/15/24 07:46 08/15/24 11:35
08/14/24 08/15/24 08/16/24
06:59 06:59 06:59
Actual Weight 84 kg
08/15/24 05:25
08/15/24 05:25
PT 13.6 Sec (11.4-14.6) 08/13/24 20:26
INR 0.99 08/13/24 20:26
Magnesium 2.2 mg/dl (1.6-2.3) 08/14/24 03:14
Triglycerides 94 mg/dl (10-149) 08/14/24 03:14
LDL Cholesterol, Calc 104 mg/dl 08/14/24 03:14
VLDL Cholesterol, Calc 18 mg/dl (0-30) 08/14/24 03:14
HDL Cholesterol 40 mg/dl 08/14/24 03:14
LAB Results
08/13/24 08/13/24 08/13/24
20:23 21:45 22:30
Troponin I 0.014 Cancelled 64.300 H* D
08/14/24 08/14/24
06:21 14:09
Troponin I 152.000 H* D 113.000 H* D
Physical Exam
Constitutional: No acute distress
Cardiovascular: Rhythm & rate is regular and Pedal edema is absent
Respiratory: Respiratory effort normal and Lungs clear to auscul.
GI: Soft, Non tender and Normal bowel sounds
Neuro/Psych: AO x 3
Other: Cath Site (R radial no hematoma, there is a palpable R radial pulse . R groin no hematoma, )
Data Reviewed
-
Date of Service: August 15, 2024
EKG: Tracing Personally Visualized and interpreted (EKG 08/15/24 ASVP 59 bpm )
Labs: Labs Reviewed by me
--- NOTE | 2024-08-15 12:37 | W.DS.TRANS ---
DC Summary - Industrial Service Technician
-
Discharge Instructions:
Discharge Diagnosis/Procedures STEMI, s/p angioplasty and stent to Left
Anterior Descending artery, Ischemic
cardiomyopathy
Diet Low Cholesterol,Low Sodium,Restrict fluids to 48
oz
Activity No strenuous activity
Additional Activity For 1 week
Driving Restrictions As prior to admission
Bathing Restrictions OK to Shower
Other Services Cardiac Rehab
Instructions:
Stand-Alone Forms: DC Instructions- Cath/EP Lab
Changes to Home Medications: Yes
Discharge Medications:
DC Medications w/original date entered in [facility]
lisinopril 10 mg tablet 10 mg PO DAILY #30 tabs 03/19/23
apixaban 5 mg tablet (Eliquis) 5 mg PO BID #60 tabs 08/14/24
aspirin 81 mg chewable tablet 81 mg PO DAILY #0 tabs 08/14/24 last dose 08/20/24.
atorvastatin 80 mg tablet 80 mg PO QPM #30 tabs 08/14/24
clopidogrel 75 mg tablet 75 mg PO DAILY #30 tabs 08/14/24
metoprolol succinate 25 mg tablet,extended release 24 hr 25 mg PO BID #60 tabs 08/14/24
Home Medication Changes
apixaban 5 mg tablet (Eliquis) 5 mg PO BID #60 tabs 08/14/24
aspirin 81 mg chewable tablet 81 mg PO DAILY #0 tabs 08/14/24 last dose 08/20/24.
atorvastatin 80 mg tablet 80 mg PO QPM #30 tabs 08/14/24
clopidogrel 75 mg tablet 75 mg PO DAILY #30 tabs 08/14/24
metoprolol succinate 25 mg tablet,extended release 24 hr 25 mg PO BID #60 tabs 08/14/24
Pending Results: No
Total time spent discharging patient (in min): 35 min
--- NOTE | 2024-08-15 15:03 | PTCARENOTE ---
Pt seen By Adali Martinez NP and Dr.Elliot Virgen. Pt c/o mild chest discomfort related to CPR. Pt OOB with RN in room without problem. Telemetry showed V Paced rhythm Telemetry and IV devices removed. Discharge instructions reviewed with pt regarding
activity restrictions, medications and their possible side effects, wound care, smoking cessation, reporting cares and concerns and follow up appt's. pt states good understanding. Report called to Tere at [facility] at 14:00, materials adn prescriptions
faxed to [facility]. [facility] will transfer pt via wheelchair and their transport.
[2024-08-15] MEDS: ZESTRIL PO (15:32)
--- NOTE | 2024-08-17 09:32 | CM ---
[id number] chart. [facility] to check if discharge summary fax[facility] to them. Faxed discharge summary to [facility].
== END 2024-08-15 15:10 | DRG 321 ==
LOC: IVU 21:53
PROVIDERS: Nurse Practitioner; ADMITTING PHYSICIAN Internal Medicine Interventional Cardiology; ATTENDING PHYSICIAN Internal Medicine Cardiovascular Disease; EMERGENCY PHYSICIAN Emergency Medicine
PROC: B2111ZZ Fluoroscopy of Multiple Coronary Arteries using Low Osmolar Contrast (ICD-10-PCS; 2024-08-13)
PROC: 5A12012 Performance of Cardiac Output, Single, Manual (ICD-10-PCS; 2024-08-13)
PROC: 5A2204Z Restoration of Cardiac Rhythm, Single (ICD-10-PCS; 2024-08-13)
PROC: 027034Z Dilation of Coronary Artery, One Artery with Drug-eluting Intraluminal Device, Percutaneous Approach (ICD-10-PCS; 2024-08-13)
PROC: B240ZZ3 Ultrasonography of Single Coronary Artery, Intravascular (ICD-10-PCS; 2024-08-13)
PROC: 4A023N8 Measurement of Cardiac Sampling and Pressure, Bilateral, Percutaneous Approach (ICD-10-PCS; 2024-08-13)
DX: I21.09 ST elevation (STEMI) myocardial infarction involving other coronary artery of anterior wall (principal); I46.2 Cardiac arrest due to underlying cardiac condition; I49.01 Ventricular fibrillation; I25.5 Ischemic cardiomyopathy; I25.10 Atherosclerotic heart disease of native coronary artery without angina pectoris; I10 Essential (primary) hypertension; I77.810 Thoracic aortic ectasia; E78.00 Pure hypercholesterolemia, unspecified; I44.7 Left bundle-branch block, unspecified; R00.1 Bradycardia, unspecified; I95.9 Hypotension, unspecified; I48.0 Paroxysmal atrial fibrillation; F15.10 Other stimulant abuse, uncomplicated; F10.10 Alcohol abuse, uncomplicated; Z95.0 Presence of cardiac pacemaker; Z87.891 Personal history of nicotine dependence; Z79.02 Long term (current) use of antithrombotics/antiplatelets; Z79.82 Long term (current) use of aspirin
CPT/HCPCS: 71250; 74176; 80048; 80053; 80061; 80306; 82805; 83036; 83605; 83690; 83735; 84484; 85025; 85027; 85347; 85610; 86803; 87070; 92978; 93005; 93306; 93460; 96374; 96375; 99152; 99153; 99291; C1725; C1753; C1874; C1894; C9606; Q9967